=== PATIENT | male | born 1955 | race Caucasian/White ===

== ENCOUNTER 2021-02-02 14:54 | Emergency (ER) | payer MEDICAID ==
[~2021-02-02] VITALS: Ht 160 cm; Wt 68.0 kg
[~2021-02-02 14:54] MED LIST: [UNRECOGNIZED DRUG - REMARK]
[2021-02-02] MEDS: ACETAMINOPHEN 325MG TABLET PO ONE (15:45)
[2021-02-02] MEDS ORDERED: ACET-2708 MT (16:55)
[2021-02-02 17:10] VITALS: BP 140/78
== END 2021-02-02 17:11 | disposition home or self-care (01) ==
LOC: ER 15:21
DX: M54.6 Pain in thoracic spine (principal); I10 Essential (primary) hypertension
CPT/HCPCS: 71046; 93005; 99283

== ENCOUNTER 2021-12-09 23:51 | Emergency (ER) | payer MEDICAID ==
[~2021-12-09] VITALS: Ht 157.5 cm; Wt 56.0 kg
[~2021-12-09 23:51] MED LIST changes: +ACET-2708 MT
[2021-12-10] MEDS ORDERED: AMLODIPINE 10MG TABLET PO ONE (00:15)
[2021-12-10] MEDS ORDERED: AMLO5TAB88 MT (02:46)
[2021-12-10 04:00] VITALS: BP 149/84
== END 2021-12-10 03:30 | disposition home or self-care (01) ==
LOC: ER 23:51
DX: I10 Essential (primary) hypertension (principal)
CPT/HCPCS: 99283

== ENCOUNTER 2023-01-27 10:32 | Emergency (ER) | payer MEDICAID, OTHER ==
[~2023-01-27] VITALS: Ht 157.5 cm; Wt 53.0 kg
[~2023-01-27 10:32] MED LIST changes: +AMLO5TAB88 MT; +CHLO25TA68 MT
[2023-01-27 10:33] VITALS: BP 141/70
[2023-01-27 16:07] LABS: *AMPHETAMINES SCREEN URINE NEGATIVE (NEGATIVE); *BARBITURATES SCREEN URINE NEGATIVE (NEGATIVE); *BENZODIAZEPINES SCREEN URINE NEGATIVE (NEGATIVE); *COCAINE SCREEN URINE NEGATIVE (NEGATIVE); CANNABINOID URINE SCREEN NEGATIVE (NEGATIVE); METHADONE URINE SCREEN NEGATIVE (NEGATIVE); OPIATES URINE SCREEN NEGATIVE (NEGATIVE); PHENCYCLIDINE URINE SCREEN NEGATIVE (NEGATIVE)
[2023-01-27 16:21] LABS: HEMATOCRIT. 47.8 % (42.0-52.0); HEMOGLOBIN. 16.4 g/dL (14.0-18.0); MEAN CORPUSCULAR VOLUME 93.3 fL (80.0-94.0); PLATELET 215 x1000/uL (130-400); RED BLOOD CELL COUNT 5.13 mill/uL (4.7-6.1); RED CELL DISTRIBUTION WIDTH 13.9 % (11.6-14.6)
[2023-01-27 16:29] LABS: CHLORIDE 106 mEq/L (98-107)
[2023-01-27] MEDS ORDERED: LORAZEPAM 0.5MG TABLET PO ONE (16:30)
[2023-01-27 16:40] LABS: PLATELET ESTIMATE NORMAL
[2023-01-27 16:41] LABS: ETHANOL BLOOD < 10 mg/dL
== END 2023-01-27 20:04 | disposition home or self-care (01) ==
LOC: ER 11:03
DX: R07.89 Other chest pain (principal); I10 Essential (primary) hypertension; F41.0 Panic disorder [episodic paroxysmal anxiety]
CPT/HCPCS: 36415; 71045; 80053; 80305; 80320; 83690; 83880; 84484; 85025; 93005; 99285; Z7610; G0480